=== PATIENT | male | born 1960 | race Caucasian/White ===

== ENCOUNTER 2017-02-24 08:22 | Day surgery (SDC) | payer BC, OTHER ==
[2017-02-24 08:40] VITALS: BMI 35.2
[2017-02-24] MEDS ORDERED: LIDOCAINE HCL/PF 2% SDV 5ML VIAL ONE (09:00)
[2017-02-24] MEDS ORDERED: PROPOFOL 20 ML ONE ×3 (09:00)
[2017-02-24] MEDS ORDERED: TETRACAINE/BENZOCAINE/BUTAMBEN 20 GM SPR TP ONE (09:19)
[2017-02-24 10:06] VITALS: TEMP 98.1
[2017-02-24 11:02] VITALS: BP 122/86; PULSE 69
[2017-02-24 11:17] LABS: BASOPHIL 0.8 % (0-2.0); EOSINOPHIL 1.6 % (0-4.5); MCH 31.9 pg (25.7-33.7); MCHC 33.6 g/dl (32.0-35.9); MEAN CELL VOLUME 95.1 fl (80-96); MEAN PLT VOLUME 9.2 fl (7.5-11.1); NEUTROPHILS 63.8 % (42.8-82.8); PLATELET COUNT 169 K/MM3 (134-434); RDW 12.6 % (11.9-15.9)
[2017-02-24 11:49] LABS: ALBUMIN 3.8 g/dl (3.4-5.0); ALK PHOS 90 U/L (45-117); ANION GAP 9 (8-16); BILIRUBIN,TOTAL 0.8 mg/dL (0.2-1.0); C-REACTIVE PROTEIN 0.7 MG/DL (0.00-0.3); CALCIUM 9.5 mg/dL (8.5-10.1); CO2 27 mmol/L (21-32); COCKROFT - GAULT 152.87; CREATININE 0.9 mg/dL (0.7-1.3); GLUCOSE,RANDOM 85 mg/dL (74-106); SGOT/AST 37 U/L (15-37); SGPT/ALT 69 U/L (12-78); TOT PROT 6.8 g/dl (6.4-8.2)
[2017-02-24 11:57] LABS: FERRITIN 237.807 ng/ml (16.4-293.9)
[2017-02-25 10:14] LABS: SERUM IRON 86 ug/dL (38-169); TOTAL IRON BINDING CAPACITY 298 ug/dL (250-450); UIBC 212 ug/dL (111-343)
[2017-02-25 14:10] LABS: HEP B SURFACE AB Non Reactive (.)
--- NOTE | 2017-02-27 11:36 | PATH ---
Surgical Pathology Report Patient Name: DALTON PORTER [facility]. Rec. #: [id number] /Age/Gender: 1960 (Age: 57) / M Account: [id number] Location: [facility] SURGICAL Taken: 02/24/2017 Received: 02/24/2017 Reported: 02/27/2017 Physicians: Vasquez Mock M.D. Specimen(s) Received A: BX 2ND PORTION DUODENUM & DUODENAL BULB B: BX ANTRUM C: BX GE JUNCTION D: BX MID ESOPHAGUS Clinical History GERD, family history of colon cancer, polyp surveillance, rule out Ayala's Hiatal hernia, GERD, esophagitis, colon diverticuli, grade 2 hemorrhoids Final Diagnosis A. DUODENUM, SECOND PORTION AND BULB, BIOPSY: DUODENAL MUCOSA WITH NO PATHOLOGIC CHANGES. NO HISTOLOGIC EVIDENCE OF GLUTEN SENSITIVE ENTEROPATHY (CELIAC SPRUE) IDENTIFIED. B. STOMACH, ANTRUM, BIOPSY: MILD CHRONIC GASTRITIS. IMMUNOSTAIN FOR H. PYLORI IS NEGATIVE. C. GE JUNCTION, BIOPSY: SQUAMOUS AND GLANDULAR MUCOSA WITH FOCAL MILD CHRONIC INFLAMMATION. NO INTESTINAL METAPLASIA IDENTIFIED (NO AYALA'S IDENTIFIED). D. MID ESOPHAGUS, BIOPSY: SQUAMOUS EPITHELIUM WITH NO PATHOLOGIC CHANGES. NO EOSINOPHILIC ESOPHAGITIS IDENTIFIED. Electronically Signed Cecil Schafer M.D. Gross Description A. Received in formalin, labeled "biopsy second portion of duodenum and duodenal bulb" are 3 johnson, irregular portions of soft tissue ranging from 0.3-0.4 cm. in greatest dimension. The specimens are submitted in toto in one cassette. B. Received in formalin, labeled "biopsy antrum" are 2 johnson, irregular portions of soft tissue measuring 0.3 and 0.4 cm. in greatest dimension. The specimens are submitted in toto in one cassette. C. Received in formalin, labeled "biopsy GE junction" are 4 johnson, irregular portions of soft tissue ranging from 0.1-0.3 cm. in greatest dimension. The specimens are submitted in toto in one cassette. D. Received in formalin, labeled "biopsy midesophagus" are 2 johnson, irregular portions of soft tissue measuring 0.2 and 0.3 cm. in greatest dimension. The specimens are submitted in toto in one cassette. 02/24/2017 saudi02/24/2017
[2017-03-01 14:31] LABS: FIBROSIS SCORING SEE FILE COPY
[2017-03-01 14:32] LABS: COMMENT--- SEE FILE COPY; INTERPRETATION. SEE FILE COPY; LIMITATIONS. SEE FILE COPY
== END 2017-02-24 11:03 | disposition home or self-care (01) ==
LOC: JASU-SURG 08:22
PROVIDERS: ATTEND Internal Medicine Gastroenterology
PROC: 0DB68ZX Excision of Stomach, Via Natural or Artificial Opening Endoscopic, Diagnostic (ICD-10-PCS; 2017-02-24)
PROC: 0DB28ZX Excision of Middle Esophagus, Via Natural or Artificial Opening Endoscopic, Diagnostic (ICD-10-PCS; 2017-02-24)
PROC: 0DB38ZX Excision of Lower Esophagus, Via Natural or Artificial Opening Endoscopic, Diagnostic (ICD-10-PCS; 2017-02-24)
PROC: 0DJD8ZZ Inspection of Lower Intestinal Tract, Via Natural or Artificial Opening Endoscopic (ICD-10-PCS; 2017-02-24)
PROC: 0DB98ZX Excision of Duodenum, Via Natural or Artificial Opening Endoscopic, Diagnostic (ICD-10-PCS; principal; 2017-02-24 09:00)
DX: Z12.11 Encounter for screening for malignant neoplasm of colon (principal); Z80.0 Family history of malignant neoplasm of digestive organs; Z86.010 Personal history of colon polyps; K64.8 Other hemorrhoids; K57.30 Diverticulosis of large intestine without perforation or abscess without bleeding; K21.9 Gastro-esophageal reflux disease without esophagitis; K44.9 Diaphragmatic hernia without obstruction or gangrene
CPT/HCPCS: 43239; G0105; 36415; 80053; 82103; 82390; 82728; 83516; 83540; 83550; 84153; 85025; 86038; 86140; 86704; 86706; 86708; 87340; 88305-TC; 88342-TC